=== PATIENT | female | born 1990 | race Caucasian/White ===

== ENCOUNTER 2016-04-26 01:31 | Emergency (ER) | payer OTHER ==
[~2016-04-26] VITALS: Ht 170.2 cm; Wt 61.2 kg
[2016-04-26 01:34] VITALS: BP 102/62
--- NOTE | 2016-04-26 02:14 | Emergency Room Report ---
History of Present Illness General Chief Complaint: Alcohol Intoxication Source: EMS Present Illness HPI This is a 25-year-old female brought in by EMS for alcohol intoxication. She was at a nearby bar was drinking heavily. She became unresponsive vomiting so far tender called 911. Unable to get any history from this patient. There is no trauma. Allergies: Coded Allergies: UNABLE TO ASSESS (Unverified , 04/26/16) Patient History Past Medical History: see triage record, old chart reviewed, unable to obtain Past Surgical History: unable to obtain Pertinent Family History: unable to obtain Social History: Reports: alcohol use Last Menstrual Period: unk Now: No Immunizations: other Reviewed Nursing Documentation: PMH: Agreed, PSxH: Agreed Nursing Documentation-PMH Past Medical History Deferred: Pt Cognitively Impaired Past Medical History: Deferred Review of Systems All Other Systems: limited - Secondary to intoxication Physical Exam Vital Signs Date Time Temp Pulse Resp B/P Pulse Ox O2 Delivery O2 Flow Rate FiO2 04/26/16 01:30 98.1 90 16 102/62 100 vitals normal Sp02 EP Interpretation: reviewed, normal General Appearance: well appearing, no apparent distress, other - Very intoxicated Head: normocephalic, atraumatic Eyes: bilateral eye EOMI, bilateral eye PERRL ENT: normal pharynx Neck: full range of motion, supple, no meningismus Respiratory: chest non-tender, lungs clear, normal breath sounds Cardiovascular #1: regular rate, rhythm, no murmur Gastrointestinal: normal bowel sounds, non tender, no mass, no organomegaly, no bruit, non-distended Musculoskeletal: back normal, normal range of motion Neurologic: grossly normal - Withdrawal to painful stimuli in all 4 extremities Skin: warm/dry Medical Decision Making Diagnostic Impression: Primary Impression: Acute alcoholic intoxication Qualified Codes: F10.120 - Alcohol abuse with intoxication, uncomplicated ER Course Patient presents with alcohol intoxication. She is waking up more. No trauma to warrant CT scan or x-rays. We'll discharge home which is more clinically sober or to get a responsible adult. Last Vital Signs Date Time Temp Pulse Resp B/P Pulse Ox O2 Delivery O2 Flow Rate FiO2 04/26/16 01:34 98.1 87 16 102/62 100 Status: improved Disposition: HOME, SELF-CARE Condition: Stable Patient Instructions: Alcohol Intoxication, [id number] Additional Instructions: Abstain from drinking to excess. Followup with your Dr. in 7 days as needed. Return if worse. ODALYS AVINA M.D. Apr 26, 2016 02:13
[2016-04-26 05:15] VITALS: BP 113/73
[2016-04-26 05:25] VITALS: BP 102/62
== END 2016-04-26 05:25 | disposition home or self-care (01) ==
LOC: EDBD 01:31 → EMR 02:29
DX: F10.129 Alcohol abuse with intoxication, unspecified (principal)
CPT/HCPCS: 99284